=== PATIENT | male | born 1970 | race Caucasian/White ===

== ENCOUNTER 2017-01-17 08:09 | Emergency (ER) | payer SELFPAY ==
[2017-01-17 08:22] VITALS: BP 158/100
[2017-01-17] MEDS ORDERED: Lidocaine 2% PF * 5 ML VIAL INJ ONE (08:36)
--- NOTE | 2017-01-17 10:22 | UC ---
Laceration HPI - HPI Summary HPI Summary: AT WORK - LACERATED RIGHT 5TH FINGER ON SHEET METAL THIS MORNING. TETANUS BOOSTED 2013. - History Of Current Complaint Chief Complaint: UCLaceration Stated Complaint: RIGHT HAND LACERATION Time Seen by Provider: 01/17/17 08:35 Hx Obtained From: Patient Laceration Location: Finger - RIGHT 5TH Mechanism Of Injury: Sharp Trauma Onset/Duration: Sudden Onset, Lasting Hours Severity: Moderate Pain Intensity: 0 Pain Scale Used: 0-10 Numeric Aggravating Factors: Movement Related History: Occupational Injury, Dominant Hand Right - Allergies/Home Medications Allergies/Adverse Reactions: Allergies Allergy/AdvReac Type Severity Reaction Status Date / Time No Known Allergies Allergy Verified 01/17/17 08:22 Home Medications: Home Medications Amlodipine Besylate [Norvasc 5 mg tab] 5 mg PO DAILY 01/17/17 [History Confirmed 01/17/17] Victoza Tab 1 tab PO QAM 01/17/17 [History Confirmed 01/17/17] metFORMIN* [Glucophage 500 MG TAB *] 1,000 mg PO DAILY 01/17/17 [History Confirmed 01/17/17] PMH/Surg Hx/FS Hx/Imm Hx Endocrine History: Diabetes, Dyslipidemia Cardiovascular History: Hypertension - Surgical History Surgical History: Yes Surgery Procedure, Year, and Place: Right index finger reattachment , left ACL - Family History Known Family History: Positive: Hypertension - Social History Alcohol Use: Occasionally Substance Use Type: None Smoking Status (MU): Never Smoked Tobacco Amount Used/How Often: one chew daily - Immunization History Most Recent Tetanus Shot: 2013 Review of Systems Constitutional: Negative Skin: Other - LACERATION Respiratory: Negative Cardiovascular: Negative Gastrointestinal: Negative All Other Systems Reviewed And Are Negative: Yes Physical Exam Triage Information Reviewed: Yes Appearance: Well-Appearing, No Pain Distress, Well-Nourished Vital Signs: Initial Vital Signs Temp 98 F 01/17/17 08:13 Pulse 73 01/17/17 08:13 Resp 18 01/17/17 08:13 BP 158/100 01/17/17 08:13 Vital Signs Reviewed: Yes Eyes: Positive: Conjunctiva Clear ENT: Positive: Hearing grossly normal Neck: Positive: Supple Respiratory: Positive: No respiratory distress, No accessory muscle use Cardiovascular: Positive: Pulses Normal Abdomen Description: Positive: Soft Musculoskeletal: Positive: ROM Intact, No Edema Neurological: Positive: Alert Psychological: Positive: Age Appropriate Behavior Skin: Positive: Other - 1 INCH V-SHAPED LACERATION RIGHT 5TH FINGER Laceration Repair - Laceration Repair 1 Description: Stellate - V-SHAPED Laceration Size After Repair: Length (cm) - 2.5CM, Width (mm) - 0MM, Depth (mm) - 3MM Modified For Repair: No Type Injection: Digital Anesthesia Used: 2.0% Lido Irrigation With Pressure Irrigation Device: Yes Closure Material: Sutures - 7 SIMPLE INTERRUPTED Closure Method: Single Layer Suture Of: Skin Suture Type: Prolene - 5-0 Laceration Course/Dx - Differential Dx - Laceration/Wound Provider Diagnoses: LACERATION REPAIR RIGHT 5TH FINGER Discharge - Discharge Plan Condition: Stable Disposition: HOME Patient Education Materials: Laceration (ED) Referrals: Non Staff,Doctor [Primary Care Provider] - Additional Instructions: KEEP DRESSINGS IN PLACE AND DRY FOR THE FIRST 24 HRS. THEN YOU MAY REMOVE THE DRESSING AND GENTLY CLEANSE WITH SOAP AND WATER. PAT DRY AND RE-BANDAGE. APPLY THIN LAYER ANTIBIOTIC OINTMENT UNDER BANDAGE FOR FIRST 3-4 DAYS ONLY. CHANGE BANDAGE DAILY AND NEEDED IF IT BECOMES SOILED OR WET. SEEK FOLLOW-UP HERE OR WITH YOUR PCP IN [place] IF YOU DEVELOP SPREADING REDNESS OF THE SKIN, PURULENT DRAINAGE, FEVER, INCREASED PAIN OR ANY OTHER CONCERNING SYMPTOMS. RETURN FOR SUTURE REMOVAL IN 10 DAYS
== END 2017-01-17 10:30 | disposition home or self-care (01) ==
LOC: UCCORT 08:09
DX: S61.216A Laceration without foreign body of right little finger without damage to nail, initial encounter (principal); W26.8XXA Contact with other sharp object(s), not elsewhere classified, initial encounter; Y93.9 Activity, unspecified; Y92.9 Unspecified place or not applicable; Y99.0 Civilian activity done for income or pay; E11.9 Type 2 diabetes mellitus without complications; Z79.84 Long term (current) use of oral hypoglycemic drugs; E78.5 Hyperlipidemia, unspecified; I10 Essential (primary) hypertension; F17.220 Nicotine dependence, chewing tobacco, uncomplicated
CPT/HCPCS: 12001; 99201; G0463